=== PATIENT | female | born 1940 | race Caucasian/White ===

== ENCOUNTER → 2017-02-23 | Outpatient (CLI) | payer OTHER | LOC: FIMAGING 14:43 | PROVIDERS: ATTEND Physician Assistant | DX: Z98.1 Arthrodesis status (principal) ==

== ENCOUNTER → 2017-08-31 | Outpatient (CLI) | payer OTHER | LOC: FIMAGING 10:39 | PROVIDERS: ATTEND Physician Assistant | DX: Z09 Encounter for follow-up examination after completed treatment for conditions other than malignant neoplasm (principal); Z98.1 Arthrodesis status ==

== ENCOUNTER 2018-01-03 18:41 | Emergency (ER) | payer OTHER ==
--- NOTE | 2018-01-03 18:44 | EDPHY ---
HPI/HX/ROS/PE/MDM Narrative: CHIEF COMPLAINT: Syncopal episode HPI: The patient is a 77 y/o female with a history of MS who arrives via EMS after a witnessed syncopal episode that occurred 15 minutes prior to EMS arrival. In 2013, the patient was admitted to this hospital for syncope. During this visit she had a full work up preformed that was negative. Per EMS and family, the patient was sitting on a bar stool preparing dinner when she stiffened up and fell onto the hard wood floor. She remained unconscious for approximately 30 seconds and awoke spontaneously, then was confused for several minutes. Her family does not believe there was seizure activity. The patient is now asymptomatic. She cannot think of any reason for her syncopal event and was feeling well prior to the incident. She admits drinking a half glass of wine prior this evening. She is normally incontinent but does not believe she was incontinent during the syncopal episode. She denies any preceding or current neck pain, headache, chest pain, shortness of breath, abdominal pain, paresthesias, numbness, fever. REVIEW OF SYSTEMS: Aside from elements discussed in the HPI, a comprehensive 10-point review of systems was reviewed and is negative. PMH: MS, cervical fusion, hypertension, gout, hysterectomy, cholecystectomy. Patient was admitted in 2013 for a syncopal event with negative workup. SOCIAL HISTORY: Lives in [place], retired, PHYSICAL EXAM: General: Patient is alert, in no acute distress. ENT: Eyes are normal to inspection. ENT inspection normal. Neck: Normal inspection. Full range of motion. Respiratory: No respiratory distress. Breath sounds normal bilaterally. Cardiovascular: Regular rate and rhythm. Strong peripheral pulses. Normal cap refill. Abdomen: The abdomen is nontender to palpation. There are no peritoneal signs. There are normal bowel sounds. Back: Normal to inspection. No tenderness to palpation. Skin: Right eyebrow abrasion. Normal color. No rash. Warm and dry. Skin tear present on left forearm. Extremities: Normal appearance. Full range of motion. Neuro: Oriented x3. Normal motor function. Normal sensory function. ED Course: 1850: EKG was ordered and interpreted by myself. Please see [facility] system for official reading. 1854: C-collar removed by myself as she cleared her c-spine per clinical criteria. 1929: Spoke with radiologist, patient's head and c-spine CT are normal. 1943: Reassessed patient and discussed imaging and laboratory findings. I offered her admission, which she declined. Return precautions provided; patient and family are comfortable with this plan. MDM: This patient presents with apparent unprovoked syncopal episode just prior to arrival. There are no red flags in history to suggest seizure, ACS, arrhythmia , CVA or dehydration. The patient is currently asymptomatic and labs, CTH and ECG are within normal limits. She has previously had a negative workup for similar episode in the past which is reassuring. She does not appear to have suffered a significant injury from the fall - I am primarily concerned about the syncopal episode itself. I discussed possible admission to the hospital for further workup and telemetry monitoring but patient declines this, with family in the room and in agreement. We discussed possible risks of this decision including recurrent fall, . Patient prefers to follow-up with her primary doctor as an outpatient. - Data Points Imaging Results: Imaging Impressions Cervical Spine CT 01/03/18 18:48 Impression: 1. No acute abnormality seen about the cervical spine. 2. Previous anterior cervical fusion from C3 through C7. 3. Facet hypertrophy identified involving the cervical spine the left at C2-C3 and bilaterally from C3-C4 through T1-T2. Findings discussed with Srinath Reed MD at 19:30 hour, 01/03/2018. Head CT 01/03/18 18:48 Impression: 1. Stable mild to moderate atrophy. 2. No hemorrhage, mass effect, or definite acute peripheral infarct. 3. Stable moderate nonspecific hypodensities in the white matter of bilateral cerebral hemispheres. Differential diagnosis includes microvascular ischemic disease, post-infectious/post-inflammatory sequela, atypical demyelinating disease, or migraine-related sequela. Small white matter lacunar infarcts may also have this appearance. 4. Soft tissue contusion along the superolateral aspect of the right orbit. 5. Nonspecific paranasal sinus disease. If symptoms worsen, additional imaging may be necessary. Findings discussed with Srinath Reed MD at 19:30 hour, 01/03/2018. Imaging: Discussed imaging studies w/ scallop binder Radiologist, I viewed and interpreted images myself Laboratory Results: Laboratory Results 01/03/18 18:45 01/03/18 18:45 03/11/18 03/11/18 03/11/18 18:45 18:45 18:45 WBC 6.89 10^3/uL 10^3/uL (3.80-9.50) RBC 4.18 10^6/uL 10^6/uL (4.18-5.33) Hgb 14.4 g/dL g/dL (12.6-16.3) Hct 40.7 % % (38.0-47.0) MCV 97.4 fL fL (81.5-99.8) MCH 34.4 pg H pg (27.9-34.1) MCHC 35.4 g/dL g/dL (32.4-36.7) RDW 12.5 % % (11.5-15.2) Plt Count 161 10^3/uL 10^3/uL (150-400) MPV 11.2 fL fL (8.7-11.7) Neut % (Auto) 49.0 % % (39.3-74.2) Lymph % (Auto) 37.3 % % (15.0-45.0) [place] % (Auto) 10.2 % % (4.5-13.0) Eos % (Auto) 2.5 % % (0.6-7.6) Baso % (Auto) 0.7 % % (0.3-1.7) Nucleat RBC Rel Count 0.0 % % (0.0-0.2) Absolute Neuts (auto) 3.38 10^3/uL 10^3/uL (1.70-6.50) Absolute Lymphs (auto) 2.57 10^3/uL 10^3/uL (1.00-3.00) Absolute Monos (auto) 0.70 10^3/uL 10^3/uL (0.30-0.80) Absolute Eos (auto) 0.17 10^3/uL 10^3/uL (0.03-0.40) Absolute Basos (auto) 0.05 10^3/uL 10^3/uL (0.02-0.10) Absolute Nucleated RBC 0.00 10^3/uL 10^3/uL (0-0.01) Immature Gran % 0.3 % % (0.0-1.1) Immature Gran # 0.02 10^3/uL 10^3/uL (0.00-0.10) PT 14.0 SEC SEC (12.0-15.0) INR 1.06 (0.83-1.16) APTT 25.8 SEC SEC (23.0-38.0) Sodium 141 mEq/L mEq/L (135-145) Potassium 4.1 mEq/L mEq/L (3.5-5.2) Chloride 110 mEq/L mEq/L (97-110) Carbon Dioxide 21 mEq/l L mEq/l (22-31) Anion Gap 10 mEq/L mEq/L (8-16) BUN 18 mg/dL mg/dL (7-23) Creatinine 0.8 mg/dL mg/dL (0.6-1.0) Estimated GFR > 60 Glucose 88 mg/dL mg/dL (70-100) Calcium 10.9 mg/dL H mg/dL (8.5-10.4) Phosphorus 3.2 mg/dL mg/dL (2.5-4.5) Troponin I < 0.012 ng/mL ng/mL (0.000-0.034) Ethyl Alcohol 86 mg/dL H mg/dL (0-10) Medications Given: Discontinued Medications Sodium Chloride (Ns) 500 mls @ 0 mls/hr IV EDNOW ONE; Wide Open PRN Reason: Protocol Stop: 01/03/18 18:49 Last Admin: 01/03/18 19:15 Dose: 500 mls General Initial Vital Signs: Initial Vital Signs Temperature (C) 36.6 C 01/03/18 18:48 Heart Rate 63 01/03/18 18:48 Respiratory Rate 16 01/03/18 18:48 Blood Pressure 135/80 H 01/03/18 18:48 O2 Sat (%) 97 01/03/18 18:48 O2 Delivery Mode Room Air Allergies/Adverse Reactions: Opioids - Morphine Analogues Allergy (Severe, Verified 02/21/16 10:42) Vomiting some anesthesia Allergy (Intermediate, Uncoded 02/21/16 10:41) Home Medications: Medication Instructions Recorded Allopurinol 01/03/18 Aspirin 01/03/18 Atenolol 01/03/18 Celecoxib 01/03/18 Gabapentin 01/03/18 Lisinopril 01/03/18 Terazosin HCl 01/03/18 amLODIPine BESYLATE 01/03/18 Departure - Departure Disposition: Home, Routine, Self-Care Clinical Impression: Syncope Condition: Good Instructions: Syncope (ED) Additional Instructions: Follow-up with your primary doctor within 72 hours. Return to the Emergency Department for fever, chest pain, shortness of breath, increasing pain or other worsening of condition. Referrals: Patient,NotPresent [Unknown] - As per Instructions Stefany Keenan MD [[facility] Primary Care Provider] - As per Instructions [facility],. [Clinic] - As per Instructions Report Scribed for: Srinath Reed Report Scribed by: Eli Albright Date of Report: 01/03/18 Time of Report: 18:51 Physician Review and Approval Statement: Portions of this note were transcribed by an ED scribe. I personally performed the history, physical exam, and medical decision making; and confirm the accuracy of the information in the transcribed note.
[2018-01-03] MEDS ORDERED: NS 500 ML IV ONE (18:48)
[2018-01-03 18:51] VITALS: RESP 16; TEMP 97.9
[2018-01-03 18:53] LABS: PLATELET COUNT 161 10^3/uL (150-400)
--- NOTE | 2018-01-03 18:53 | CPEKG ---
Heart Rate: 66 RR Interval: 909 P-R Interval: 200 QRSD Interval: 104 QT Interval: 440 QTC Interval: 461 P [place]: 43 QRS [place]: -37 T Wave [place]: 62 EKG Severity - BORDERLINE ECG - EKG Impression: SINUS RHYTHM EKG Impression: LEFT AXIS DEVIATION EKG Impression: BORDERLINE T WAVE ABNORMALITIES Electronically Signed By: Srinath Reed 03-Jan-2018 20:51:34
[2018-01-03 19:07] LABS: INR 1.06 (0.83-1.16)
[2018-01-03 19:43] VITALS: BP 136/81; PULSE 65; O2SAT 98
== END 2018-01-03 20:18 | disposition home or self-care (01) ==
LOC: EDUNIT#
DX: R55 Syncope and collapse (principal); I10 Essential (primary) hypertension; E86.9 Volume depletion, unspecified
CPT/HCPCS: G0480

== ENCOUNTER → 2018-01-22 | Outpatient (CLI) | payer OTHER | LOC: FIMAGING 10:25 | PROVIDERS: ATTEND Internal Medicine | DX: Z12.31 Encounter for screening mammogram for malignant neoplasm of breast (principal) ==

== ENCOUNTER → 2018-02-23 | Outpatient (CLI) | payer OTHER | LOC: BHFA 13:15 | PROVIDERS: ATTEND Internal Medicine Cardiovascular Disease | DX: R55 Syncope and collapse (principal); I10 Essential (primary) hypertension ==

== ENCOUNTER → 2018-04-20 | Outpatient (CLI) | payer OTHER | LOC: BHFA 14:00 | PROVIDERS: ATTEND Internal Medicine Cardiovascular Disease | DX: R55 Syncope and collapse (principal) ==